=== PATIENT | male | born 1985 | race Caucasian/White ===

== ENCOUNTER 2018-01-03 12:43 | Emergency (ER) | payer MEDICAID ==
[~2018-01-03 12:43] MED LIST: ALB18R INH; ALBU8.5H IH; BUDE10.25 IH
[2018-01-03] MEDS ORDERED: MONT10TA PO (12:59)
[2018-01-03] MEDS ORDERED: TIOT4MIS2 (12:59)
[2018-01-03] MEDS ORDERED: LISI-355 PO (12:59)
[2018-01-03] MEDS ORDERED: FLUT1BLS3 (12:59)
[2018-01-03] MEDS ORDERED: ALBUTEROL/IPRATROPIUM 3 ML NEB NEB ONE ×2 (13:00)
[2018-01-03] MEDS ORDERED: predniSONE 20 MG TAB PO ONE (13:00)
--- NOTE | 2018-01-03 14:07 | RADIOLOGY IMAGING REPORT ---
FACILITY: PATIENT NAME: Preston Hampton : 1985 MR: [id number] V: [id number] EXAM DATE: ORDERING PHYSICIAN: MEMO ARELLANO TECHNOLOGIST: Location: [facility] [place] Patient: Preston Hampton : 1985 Visit/Account:[id number] Date of Sevice: 01/03/2018 EXAMINATION: Chest radiographs 2 views HISTORY: Shortness of breath. COMPARISON: None. FINDINGS: PA and lateral views of the chest are submitted. Lines/tubes: None. Lungs/pleura: No focal consolidation or pleural effusion. Pulmonary vascularity is within normal reeder its. No evidence of pneumothorax. Heart: Normal heart size. Mediastinum: Mediastinal contours are within normal limits. Bony structures/body wall: Negative. IMPRESSION: No radiographic evidence of acute cardiopulmonary disease. Report Dictated By: Jim Farris MD at 01/03/2018 2:02 PM Report E-Signed By: Jim Farris MD at 01/03/2018 2:04 PM [id number]
[2018-01-03] MEDS ORDERED: ALBUTEROL/IPRATROPIUM 3 ML NEB ONE (14:13)
--- NOTE | 2018-01-03 14:31 | ER Report ---
History and Physical Time Seen By MD: 12:40 Hx. of Stated Complaint: ]pt has been traveling from [place] today, has hx of asthma, and he has oxygen 4 l for this HPI/ROS CHIEF COMPLAINT: asthma attack HISTORY OF PRESENT ILLNESS: pt has hx of severe asthma, on 02 at all times, denies copd/tobac hx, notes sob that began today, worse with exertion, improved with rest, constant since 0900. No chest pain, leg swelling, abd pain, n/v REVIEW OF SYSTEMS: Constitutional: No fever, no chills. Eyes: No discharge. ENT: No sore throat. Cardiovascular: No chest pain, no palpitations. Respiratory: No cough Gastrointestinal: No abdominal pain, no vomiting. Genitourinary: No hematuria. Musculoskeletal: No back pain. Skin: No rashes. Neurological: No headache. Remainder of the 14 system rev: Yes Allergies: Coded Allergies: No Known Drug Allergies (Unverified , 01/03/18) Home Meds Active Scripts Albuterol Sulfate (VENTOLIN HFA) 18 Gm Inh, 2 PUFF INH Q4-6H Y for SHORTNESS OF BREATH, #1 INH 1 Refill Prov:HIMANSHU HOLMAN REGULATOR PIN INSERTER 06/10/15 Reported Medications Lisinopril/Hydrochlorothiazide (LISINOPRIL-HCTZ 20-25 MG TAB) 1 Each Tablet, 1 EACH PO 01/03/18 Montelukast Sodium (SINGULAIR) 10 Mg Tablet, 1 TAB PO QDAY, TAB 01/03/18 Tiotropium [place] 2.5 MCG/ACT (Spiriva Respimat 2.5 MCG/ACT) 4 Gm Mist.inhal 01/03/18 Fluticasone/Vilanterol (Breo Ellipta 200-25 Mcg INH) 1 Each Blst.w.dev 01/03/18 Discontinued Reported Medications Budesonide/Formoterol Fumarate (SYMBICORT 80-4.5 MCG INHALER) 10.2 Gm Hfa.aer.ad , IH 07/28/15 Hx Smoking: Yes Smoking Status: Former Smoker Hx Substance Use Disorder: No Hx Alcohol Use: Yes (rare) Constitutional Vital Sign - Last 24 Hours 01/03/18 01/03/18 01/03/18 01/03/18 12:43 12:49 12:50 12:50 Temp 97.9 Pulse ??? 94 Resp 32 B/P (MAP) 146/87 (106) 146/87 Pulse Ox 92 O2 Delivery Nasal Cannula O2 Flow Rate 4.0 01/03/18 01/03/18 01/03/18 01/03/18 13:10 13:13 13:43 14:01 Pulse 83 86 91 Resp 20 Pulse Ox 98 95 99 O2 Delivery Nasal Cannula O2 Flow Rate 4.0 01/03/18 01/03/18 01/03/18 01/03/18 14:01 14:13 14:44 14:44 Pulse 93 90 88 Resp 20 18 Pulse Ox 94 95 O2 Delivery Nasal Cannula O2 Flow Rate 4.0 01/03/18 14:52 Pulse 84 Resp 18 Physical Exam General Appearance: [The patient is alert, has no immediate need for airway protection and no signs of toxicity.] [ ] Eyes: Pupils equal and round no pallor or injection. ENT, Mouth: Mucous membranes are moist. Respiratory: There are no retractions, lungs are clear to auscultation; lung sounds diminished bilaterally. mild tachypnea Cardiovascular: Regular rate and rhythm. [ ] Gastrointestinal: Abdomen is soft and non tender, no masses, bowel sounds normal. Neurological: alert, oriented, moves all extremities Skin: Warm and dry, no rashes. Musculoskeletal: Neck is supple non tender. Extremities are nontender, nonswollen and have full range of motion. [ ] DIFFERENTIAL DIAGNOSIS: After history and physical exam differential diagnosis was considered for shortness of breath including but not limited to pulmonary infectious process, COPD, asthma, pulmonary embolus and congestive heart failure. Medical Decision Making Data Points Result Diagram: 01/03/18 1457 01/03/18 1457 Laboratory Hematology Test 01/03/18 14:57 Red Blood Count 4.97 M/uL (4.00-5.60) Mean Corpuscular Volume 84.1 fL (80.0-96.0) Mean Corpuscular Hemoglobin 28.3 pg (26.0-33.0) Mean Corpuscular Hemoglobin Concent 33.7 g/dL (32.0-36.0) Red Cell Distribution Width 16.0 % (11.5-14.5) Mean Platelet Volume 8.5 fL (7.2-11.1) Neutrophils % (Manual) 76 % (39.4-72.5) Lymphocytes % (Manual) 17 % (17.6-49.6) Monocytes % (Manual) 5 % (4.1-12.4) Eosinophils % (Manual) 0 % (0.4-6.7) Basophils % (Manual) 2 % (0.3-1.4) Prothrombin Time 12.7 seconds (12.0-14.4) Prothromb Time International Ratio 0.95 Activated Partial Thromboplast Time 26 seconds (23-35) D-Dimer Quantitative (PE/DVT) 1.21 ug/ml (0-0.50) Sodium Level 139 mmol/L (137-145) Potassium Level 4.4 mmol/L (3.5-5.0) Chloride Level 100 mmol/L (98-107) Carbon Dioxide Level 26 mmol/L (22-30) Blood Urea Nitrogen 11 mg/dl (9-21) Creatinine 0.60 mg/dl (0.66-1.25) Glomerular Filtration Rate Calc > 60.0 Random Glucose 109 mg/dl (75-110) Calcium Level 9.0 mg/dl (8.4-10.2) Troponin I < 0.012 ng/ml Chemistry Test 01/03/18 14:57 White Blood Count 9.5 k/uL (4.5-11.0) Red Blood Count 4.97 M/uL (4.00-5.60) Hemoglobin 14.1 g/dL (14.0-18.0) Hematocrit 41.8 % (42.0-52.0) Mean Corpuscular Volume 84.1 fL (80.0-96.0) Mean Corpuscular Hemoglobin 28.3 pg (26.0-33.0) Mean Corpuscular Hemoglobin Concent 33.7 g/dL (32.0-36.0) Red Cell Distribution Width 16.0 % (11.5-14.5) Platelet Count 256 K/uL (150-450) Mean Platelet Volume 8.5 fL (7.2-11.1) Neutrophils % (Manual) 76 % (39.4-72.5) Lymphocytes % (Manual) 17 % (17.6-49.6) Monocytes % (Manual) 5 % (4.1-12.4) Eosinophils % (Manual) 0 % (0.4-6.7) Basophils % (Manual) 2 % (0.3-1.4) Prothrombin Time 12.7 seconds (12.0-14.4) Prothromb Time International Ratio 0.95 Activated Partial Thromboplast Time 26 seconds (23-35) D-Dimer Quantitative (PE/DVT) 1.21 ug/ml (0-0.50) Glomerular Filtration Rate Calc > 60.0 Calcium Level 9.0 mg/dl (8.4-10.2) Troponin I < 0.012 ng/ml Coagulation Test 01/03/18 14:57 Prothrombin Time 12.7 seconds Prothromb Time International Ratio 0.95 Activated Partial Thromboplast Time 26 seconds D-Dimer Quantitative (PE/DVT) 1.21 ug/ml EKG/Imaging EKG Interpretation 12 lead EKG: Rhythm: Normal sinus rhythm Reading: Normal QRS: Normal ST segments: Normal Monitor Interpretation: Normal Sinus Rhythm ED Course/Re-evaluation ED Course Pt presents with sgs/symptoms of asthma/copd that he states as similar to prior However given minimal wheezing and only slight initial improvement, I evaluated for further etiologies including pe, acs, pneumonia. CT unremarkable for pe and on reassessment pt sig ipmroved. Pt ambulates and feels at nl baseline; sats in mid 80's. Decision to Disposition Date: Jan 03, 2018 Decision to Disposition Time: 17:05 Depart Departure Latest Vital Signs Vital Signs Date Time Temp Pulse Resp B/P (MAP) Pulse Ox O2 Delivery O2 Flow Rate FiO2 01/03/18 14:52 84 18 01/03/18 14:44 95 Nasal Cannula 4.0 01/03/18 12:50 97.9 146/87 Impression: Primary Impression: COPD exacerbation Condition: Improved Disposition: HOME OR SELF-CARE New Scripts Prednisone (PREDNISONE) 20 Mg Tablet 60 MG PO QDAY for 5 Days, #15 TAB Prov: MEMO ARELLANO MD 01/03/18 Patient Instructions: Asthma (ED), COPD (Chronic Obstructive Pulmonary Disease ) (ED) MEMO ARELLANO MD Jan 03, 2018 14:31
[2018-01-03] MEDS ORDERED: ALBUTEROL 2.5 MG/0.5ML ER ONLY NEB ONE (14:35)
--- NOTE | 2018-01-03 14:53 | EKG ---
FACILITY: [facility] PATIENT NAME: YASMIN MARTINES : [id number] MR: [id number] V: [id number] EXAM DATE: ORDERING PHYSICIAN: MEMO ARELLANO TECHNOLOGIST: ERNESTINE Jean Baptiste Reason : SOB Blood Pressure : / mmHG Vent. Rate : 077 BPM Atrial Rate : 077 BPM P-R Int : 174 ms QRS Dur : 096 ms QT Int : 374 ms P-R-T Axes : 038 -11 039 degrees QTc Int : 423 ms Normal sinus rhythm Normal ECG No previous ECGs available Confirmed by GANGA GUERRA ([id number]) on 01/03/2018 8:24:36 PM Referred By: ADAN Confirmed By:GANGA GUERRA
[2018-01-03 15:05] LABS: PLATELET COUNT, AUTOMATED 256 K/uL (150-450)
[2018-01-03 15:56] LABS: INR 0.95
[2018-01-03] MEDS ORDERED: IOPAMIDOL 76% 100 ML INFUS BTL 100 ML ONE (16:06)
[2018-01-03] MEDS ORDERED: NS 0.9% 25 ML BAG 50 ML ONE (16:06)
[2018-01-03] MEDS ORDERED: NS 0.9% 25 ML BAG 25 ML ONE (16:07)
--- NOTE | 2018-01-03 16:44 | RADIOLOGY IMAGING REPORT ---
FACILITY: [facility] PATIENT NAME: Preston Hampton : 1985 MR: [id number] V: [id number] EXAM DATE: ORDERING PHYSICIAN: MEMO ARELLANO TECHNOLOGIST: Location: [facility] Patient: Preston Hampton : 1985 Visit/Account:[id number] Date of Sevice: 01/03/2018 CT ANGIOGRAM OF THE CHEST WITH INTRAVENOUS CONTRAST, PE PROTOCOL DATE OF EXAM: 01/03/2018 15:27 COMPARISON: Chest radiographs of the same day. INDICATION: shortness of breath, recent travel, elevated dimer. TECHNIQUE: Contrast enhanced chest CT performed during the injection of 25 ml of Isovue-370. Three-d imensional (MIP) reconstructions were performed. FINDINGS: Imaging is degraded by photon starvation related to body habitus. There is no conspicuous pulmonary a rterial filling defect, however opacification of the peripheral pulmonary arteries is marginal. Thyroid: Thoracic inlet: There is no thoracic inlet lymphadenopathy. Heart and great vessels: Heart size is normal. Mediastinum and rose mary: No mediastinal or hilar adenopathy. Lungs and pleura: Mild dependent atelectasis. No effusion, consolidation, or pneumothorax. Breast and axilla: Breast tissue is incompletely imaged. Bones and soft tissues: No acute osseous abnormality. Upper abdomen: Liver parenchymal density is diffusely decreased. The liver is likely enlarged. IMPRESSION: Photon starvation related to body habitus severely degrades imaging. There is no apparent pulmonary a rterial filling defect. One of the following dose optimization techniques was utilized in the performance of this exam: Autom ated exposure control; adjustment of the mA and/or kV according to the patient's size; or use of an i terative reconstruction technique. Specific details can be referenced in the facility's radiology C T exam operational policy. Report Dictated By: Micky Kelly MD at 01/03/2018 4:28 PM Report E-Signed By: Micky Kelly MD at 01/03/2018 4:40 PM [id number]
[2018-01-03] MEDS ORDERED: PRED20TA6 PO (17:08)
[2018-01-03 17:24] VITALS: BP 142/88
== END 2018-01-03 17:37 | disposition home or self-care (01) ==
LOC: ER 12:51
DX: J45.901 Unspecified asthma with (acute) exacerbation (principal); Z87.891 Personal history of nicotine dependence
CPT/HCPCS: 36415; 71046; 71275; 84484; 85007; 85027; 85379; 85610; 85730; 93005; 94640; 99284; J7512; J7611; J7620; Q9967; 82310; 82374; 82435; 82565; 82947; 84132; 84295; 84520; 99283